=== PATIENT | male | born 1950 | race Caucasian/White ===

== ENCOUNTER 2016-11-20 10:38 | Outpatient (CLI) | payer OTHER ==
--- NOTE | 2016-11-20 16:51 | ULT ---
BILATERAL CAROTID DUPLEX ULTRASOUND INCLUDING COLOR AND SPECTRAL DOPPLER IMAGING: History: 66-year-old male with history of CVA. History of right ICA occlusion. FINDINGS: Extensive plaque in the right ICA with total occlusion. Marked increased velocity in the right ECA o f 304 cm/sec. On the left side there is fairly extensive plaque at the origin of the left ICA. PSV left ICA 134 cm/sec. EDV 57 cm/sec. ICA/CCA ratio of 1.3. IMPRESSION: Complete occlusion of the right ICA, stable. Moderate stenosis of the proximal left ICA with extensi ve plaque, stable from prior exam 12-10-13. POS: OFF
== END 2016-11-20 10:39 | disposition home or self-care (01) ==
LOC: ULT 10:38
PROVIDERS: ATTEND Family Medicine
DX: I63.9 Cerebral infarction, unspecified (principal); I65.23 Occlusion and stenosis of bilateral carotid arteries
CPT/HCPCS: 93880

== ENCOUNTER 2017-05-24 14:24 | Outpatient (CLI) | payer MEDICARE, OTHER | END 2017-05-24 14:25 | disposition home or self-care (01) | LOC: BICULT 14:24 | PROVIDERS: ATTEND Family Medicine | DX: I65.23 Occlusion and stenosis of bilateral carotid arteries (principal) | CPT/HCPCS: 93880 ==

== ENCOUNTER 2017-11-30 09:17 | Outpatient (CLI) | payer MEDICARE, OTHER | END 2017-11-30 09:18 | disposition home or self-care (01) | LOC: CTENTCT 09:17 | PROVIDERS: ATTEND Specialist | DX: J34.2 Deviated nasal septum (principal) | CPT/HCPCS: 70486 ==

== ENCOUNTER 2019-03-04 11:24 | Outpatient (CLI) | payer MEDICARE, OTHER | END 2019-03-04 11:25 | disposition home or self-care (01) | LOC: CTENTCT 11:24 | PROVIDERS: ATTEND Otolaryngology Plastic Surgery within the Head & Neck | DX: L03.213 Periorbital cellulitis (principal) | CPT/HCPCS: 70486 ==

== ENCOUNTER 2019-07-15 07:52 | Outpatient (CLI) | payer MEDICARE, OTHER ==
[2019-07-15 14:22] LABS: Hemoglobin 16.2 g/dL (14.0-18.0)
[2019-07-15 14:45] LABS: Anion Gap 12 mmol/L (10-20); BUN (Urea Nitrogen) 16 mg/dL (8.4-25.7); Calc. Creatinine Clearance 0 mL/min (70-130); Calcium 10.2 mg/dL (7.8-10.44); Carbon Dioxide 30 mmol/L (23-31); Chloride 106 mmol/L (98-107); Estimated GFR-MDRD 89; Glucose 107 mg/dL (80-115); Potassium 4.5 mmol/L (3.5-5.1); Sodium 143 mmol/L (136-145)
== END 2019-07-15 07:53 | disposition home or self-care (01) ==
LOC: LABBT 07:52
PROVIDERS: ATTEND Otolaryngology Plastic Surgery within the Head & Neck
DX: Z01.812 Encounter for preprocedural laboratory examination (principal); Z11.59 Encounter for screening for other viral diseases; J32.8 Other chronic sinusitis; J34.2 Deviated nasal septum; J34.3 Hypertrophy of nasal turbinates
CPT/HCPCS: 80048; 85014; 85018

== ENCOUNTER 2019-07-16 06:52 | Day surgery (SDC) | payer MEDICARE, OTHER ==
[2019-07-16] MEDS ORDERED: AFRIN NASAL MIST 15 ML BOT ONE ×2 (07:29→08:38)
[2019-07-16] MEDS ORDERED: Acetaminophen 500 MG TAB ONE (07:35)
[2019-07-16] MEDS ORDERED: Lidocaine 1% w/Epinephrine 1:100K 20 ML VIAL ONE (08:38)
[2019-07-16] MEDS ORDERED: Bacitracin Zinc Ointment 30 gm TUBE ONE (08:38)
[2019-07-16] MEDS ORDERED: Fentanyl 100 MCG/2 ML VIAL ONE ×3 (08:39→10:10)
[2019-07-16] MEDS ORDERED: Labetalol HCl 100 MG/20 ML VIAL ONE (10:03)
[2019-07-16] MEDS ORDERED: Lidocaine 1% PF 5 ML VIAL ONE (11:29)
[2019-07-16] MEDS ORDERED: Ondansetron PF 4 MG/2 ML Vial ONE (11:29)
[2019-07-16] MEDS ORDERED: Dexamethasone 20 MG/5 ML VIAL ONE (11:29)
[2019-07-16] MEDS ORDERED: Rocuronium Bromide 10 MG/ML (10ML VIAL) ONE (11:29)
[2019-07-16] MEDS ORDERED: PROPOFOL 200 MG/20 ML VIAL ONE (11:29)
[2019-07-16] MEDS ORDERED: EPHEDRINE 25 MG/5 ML SYRINGE ONE (11:29)
[2019-07-16] MEDS ORDERED: Glycopyrrolate 0.2 MG/ML 5 ML SYRINGE ONE (11:29)
--- NOTE | 2019-07-17 17:11 | OP ---
DATE OF PROCEDURE: 07/16/2019 PREOPERATIVE DIAGNOSES: 1. Chronic rhinosinusitis. 2. Allergic fungal sinusitis. 3. Bilateral nasal polyposis. 4. Nasal septal deviation. 5. Bilateral inferior turbinate submucosal resection. PROCEDURES PERFORMED: 1. Bilateral endoscopic sinus surgery, total ethmoidectomies with sphenoidotomies including removal of tissue. 2. Bilateral endoscopic sinus surgery, maxillary antrostomies with removal of tissue. 3. Bilateral endoscopic sinus surgery, frontal sinus exploration. 4. Nasal septoplasty. 5. Bilateral inferior turbinate submucosal resection. ESTIMATED BLOOD LOSS: 20 mL. COMPLICATIONS: None. ANESTHESIA: GETA. INDICATIONS FOR PROCEDURE: This is a 69-year-old gentleman, who was unable to tolerate completion of an in-office balloon sinuplasty 2 days prior. He has what we consider severe pansinusitis that has been unresponsive to medical management. He was encouraged to attempt an in-office procedure being that he has 100% occlusion of his carotid artery and is at extremely high risk for stroke during procedure. However, after failure of this, the danger the severe sinusitis presents to his eyes and brain greatly outweigh the risks. DESCRIPTION OF PROCEDURE: NASAL SEPTOPLASTY AND BILATERAL INFERIOR TURBINATE SUBMUCOSAL RESECTION: Patient was taken to the operating room and placed supine on the table. General endotracheal anesthesia was obtained by the anesthesia staff. Then 1% lidocaine with 1:100,000 epinephrine was injected into the nasal septum as well as the inferior turbinates. The patient was prepped and draped in standard surgical fashion. The [place] pledgets were then removed. A [place] incision was made on the left nasal septum. Submucoperichondrial dissection was performed bilaterally of the deviated portions of the septum, which included the maxillary crest and the crest deviation, as well as the mid portion of the septum. Cartilage and bony deviation was removed, leaving a generous caudal and dorsal strut. Any straight pieces of cartilage were then placed within the cartilage press, pressed, straightened, and then placed between the mucoperichondrial flaps, which were then closed using a 4-0 gut stitch. The inferior turbinates were then punctured with the submucosal Coblation machine, and 3 separate coblations were delivered to the anterior inferior portion of the inferior turbinates. Following this, the nasal cavity was irrigated. All debris was removed. An orogastric tube was placed. Gastric contents and Bell splints were then placed in the nasal cavity and sutured with a 3-0 silk stitch. BILATERAL ENDOSCOPIC SINUS SURGERY, TOTAL ETHMOIDECTOMY AND MAXILLARY ANTROSTOMY: Following this, 1% lidocaine with 1:100,000 epinephrine were injected into the middle turbinates and lateral nasal wall bilaterally. Following this, the 0-degree endoscope was used to visualize the middle turbinate and the middle turbinate was medially fractured using a [place] elevator. Following this, the uncinate process was identified and was examined. The uncinate process was noted to be inflamed and laterally displaced bilaterally. Following this, a ball-ended probe was used to anteriorly fracture the uncinate process bilaterally. Following this, the 0-degree microdebrider and the up-biting [place] forceps were used to remove the uncinate process bilaterally. Following this, the natural maxillary sinus ostia was identified with the 0-degree endoscope and the ball-ended probe. The natural maxillary ostia was then widened using a 40-degree microdebrider and the straight [place] forceps bilaterally. Following this, the ethmoidal bulla was identified bilaterally. A 0-degree microdebrider was used to puncture the ethmoidal bulla on its medial and inferior aspect bilaterally. Following this, the 0-degree microdebrider and the up-biting [place] forceps were used to remove the ethmoidal bulla. Following this, the grand lamella was identified posterior to this area and was punctured using the 0-degree microdebrider bilaterally. Following this, the ethmoidal cells were opened from the posterior to the anterior using the 0-degree microdebrider, the 40-degree microdebrider and the up-biting [place] forceps bilaterally. Following this, the 45-degree endoscope and the 40-degree microdebrider blade were used to further remove the anterior ethmoidal cells to the level of the frontal sinus recess bilaterally. Please note that the nasal polyps and fungal debris were removed from the ethmoidal sinuses and the maxillary sinuses bilaterally using the curved suction and 40-degree microdebrider blade. Following this, the sphenoid sinus was approached through the previous ethmoidectomies using the 0-degree microdebrider. Following this, a sphenoidotomy was created on the anterior wall of the sphenoid sinus bilaterally with Page tip suction and the sphenoidotomy was widened by removing tissue with a 0-degree microdebrider. Tissue removed included nasal polyps and fungal debris along with purulence. Following this, a 45-degree endoscope and the 40-degree microdebrider blade was used to widen the frontal sinus ostia and anterior ethmoidal cells bilaterally. Following this, the nasal cavity was irrigated. NasoPore packing was placed in the middle meatus. Bell splints were placed and secured. The patient tolerated the procedure well. Job ID: [id number]
== END 2019-07-16 12:04 | disposition home or self-care (01) ==
LOC: SDC 06:52
PROVIDERS: ATTEND Otolaryngology Plastic Surgery within the Head & Neck
PROC: 099R8ZZ Drainage of Left Maxillary Sinus, Via Natural or Artificial Opening Endoscopic (ICD-10-PCS; principal; 2019-07-16)
PROC: 099Q8ZZ Drainage of Right Maxillary Sinus, Via Natural or Artificial Opening Endoscopic (ICD-10-PCS; 2019-07-16)
PROC: 09BT8ZZ Excision of Left Frontal Sinus, Via Natural or Artificial Opening Endoscopic (ICD-10-PCS; 2019-07-16)
PROC: 09BS8ZZ Excision of Right Frontal Sinus, Via Natural or Artificial Opening Endoscopic (ICD-10-PCS; 2019-07-16)
PROC: 09BL8ZZ Excision of Nasal Turbinate, Via Natural or Artificial Opening Endoscopic (ICD-10-PCS; 2019-07-16)
PROC: 09BM8ZZ Excision of Nasal Septum, Via Natural or Artificial Opening Endoscopic (ICD-10-PCS; 2019-07-16)
PROC: 09BV8ZZ Excision of Left Ethmoid Sinus, Via Natural or Artificial Opening Endoscopic (ICD-10-PCS; 2019-07-16)
PROC: 09BU8ZZ Excision of Right Ethmoid Sinus, Via Natural or Artificial Opening Endoscopic (ICD-10-PCS; 2019-07-16)
PROC: 099X8ZZ Drainage of Left Sphenoid Sinus, Via Natural or Artificial Opening Endoscopic (ICD-10-PCS; 2019-07-16)
PROC: 099W8ZZ Drainage of Right Sphenoid Sinus, Via Natural or Artificial Opening Endoscopic (ICD-10-PCS; 2019-07-16)
DX: J32.9 Chronic sinusitis, unspecified (principal); J34.2 Deviated nasal septum; J34.3 Hypertrophy of nasal turbinates; J33.9 Nasal polyp, unspecified; J34.89 Other specified disorders of nose and nasal sinuses; I10 Essential (primary) hypertension; E11.9 Type 2 diabetes mellitus without complications; F41.9 Anxiety disorder, unspecified; E78.5 Hyperlipidemia, unspecified; Z79.82 Long term (current) use of aspirin; Z79.84 Long term (current) use of oral hypoglycemic drugs; Z79.899 Other long term (current) drug therapy; Z87.891 Personal history of nicotine dependence
CPT/HCPCS: J1100; J2001; J2405; J2704; J3010

== ENCOUNTER 2019-11-25 14:22 | Outpatient (CLI) | payer MEDICARE, OTHER ==
--- NOTE | 2019-11-25 15:36 | ULT ---
BILATERAL CAROTID DUPLEX ULTRASOUND: HISTORY: Left carotid bruit COMPARISON: 11/20/2016, 05/24/2017 TECHNIQUE: Grayscale, color-flow and spectral Doppler ultrasound imaging of the extracranial carotid artery syst ems and vertebral arteries was performed bilaterally. FINDINGS: Right carotid: Significant atherosclerotic disease in the carotid bifurcation. There is occlusion of the internal carotid artery. Left carotid: Calcified plaque in the left carotid bifurcation. The peak systolic velocity in the right ICA measures 43.9 cm/s. The peak systolic velocity in the ri ght CCA measures 109 cm/s. The peak systolic velocity in the left ICA measures 182 cm/s. The peak systolic velocity in the le ft CCA measures 89.5 cm/s. The right IC/CC ration is0.4. The left IC/CC ratio is 2.1. Vertebral flow: antegrade, bilaterally. . IMPRESSION: 1. Redemonstration of occlusion of the right internal carotid artery 2. Moderate stenosis of the left carotid artery. Consider CT angiogram and cardiovascular surgical co nsultation. CODE T
== END 2019-11-25 14:23 | disposition home or self-care (01) ==
LOC: BICULT 14:22
PROVIDERS: ATTEND Family Medicine
DX: I63.9 Cerebral infarction, unspecified (principal); R09.89 Other specified symptoms and signs involving the circulatory and respiratory systems; I65.23 Occlusion and stenosis of bilateral carotid arteries
CPT/HCPCS: 93880

== ENCOUNTER 2022-11-30 12:39 | Outpatient (CLI) | payer MEDICARE, OTHER | END 2022-11-30 12:40 | disposition home or self-care (01) | LOC: ULT 12:39 | PROVIDERS: ATTEND Family Medicine | DX: N50.89 Other specified disorders of the male genital organs (principal); R09.89 Other specified symptoms and signs involving the circulatory and respiratory systems; N44.2 Benign cyst of testis; N43.3 Hydrocele, unspecified; I65.22 Occlusion and stenosis of left carotid artery | CPT/HCPCS: 76870; 93880; 93976 ==

== ENCOUNTER 2023-06-28 09:54 | Inpatient (IN) | payer MEDICARE, OTHER ==
[2023-06-28 11:11] LABS: #Basophils Less than 0.03 10x3/uL (0.0-0.2); %Basophils 0.2 % (0.0-1.0); %Lymphocytes 3.1 % (21.0-51.0); %Monocytes 8.5 % (0.0-10.0); %Neutrophils 86.3 % (42.0-75.0); Hematocrit 30.5 % (42.0-52.0); Hemoglobin 9.8 g/dL (14.0-18.0); Mean Corpuscular HGB CONC 32.1 g/dL (32.0-36.0); Mean Corpuscular Hemoglobin 29.3 pg (27.0-31.0); Mean Platelet Volume 9.9 fL (7.4-10.4); Platelet Count 213 10x3/uL (130-400); RBC Distribution Width 17.9 % (11.5-14.5); Red Blood Cell (RBC) Count 3.35 mill/uL (4.70-6.10)
[2023-06-28 11:43] LABS: ALT (SGPT) 12 U/L (8-55); AST (SGOT) 24 U/L (5-34); Albumin 2.1 g/dL (3.4-4.8); Alkaline Phosphatase 118 U/L (40-110); Anion Gap 13 mmol/L (10-20); BUN (Urea Nitrogen) 50 mg/dL (8.4-25.7); Bilirubin, Total 0.8 mg/dL (0.2-1.2); Calc. Creatinine Clearance 0 mL/min (70-130); Calcium 16.5 mg/dL (7.8-10.44); Carbon Dioxide 30 mmol/L (23-31); Chloride 97 mmol/L (98-107); Estimated GFR 33; Globulin 3.7 g/dL (2.4-3.5); Glucose 152 mg/dL (83-110); Potassium 2.9 mmol/L (3.5-5.1); Protein, Total 5.8 g/dL (5.8-8.1); Sodium 137 mmol/L (136-145)
[2023-06-28 12:49] LABS: Magnesium 2.1 mg/dL (1.6-2.6)
[2023-06-28] MEDS ORDERED: Potassium Bicarbonate/Cit Ac 20 MEQ TAB ONE (13:32)
[2023-06-28] MEDS ORDERED: Aspirin Chewable 81 MG TAB ONE (13:32)
[2023-06-28 15:12] LABS: Bilirubin Negative (Negative); Blood, Urine Negative (Negative); CAUTI Indications for Culture Alt mental st,lethar; Clarity Clear (Clear); Glucose, Urine (Dipstick) Normal (Negative); Ketone, Urine Negative (Negative); Leukocyte Negative Leu/uL (Negative); Nitrite Negative (Negative); Protein, Urine (Dipstick) 20 mg/dL (Neg-Trace); RBC/HPF 0-3 HPF (0-3); Specific Gravity, Urine 1.016 (1.002-1.036); Squamous Epithelial 0-3 HPF (0-3); Urobilinogen Normal mg/dL (Less than 2); WBC/HPF 0-3 HPF (0-3); pH, Urine 5.5 (5.0-9.0)
[2023-06-28 15:28] LABS: Bacteria/HPF Rare-Few HPF (None Seen); Sperm/HPF Rare HPF (None Seen)
[2023-06-28 15:29] LABS: Urine Culture Reflex No No
[2023-06-28] MEDS ORDERED: Acetaminophen 325 MG TAB PO PRN (15:35)
[2023-06-28] MEDS ORDERED: Senokot S 8.6-50 MG TAB PO PRN (15:35)
[2023-06-28] MEDS ORDERED: Dextrose 50% Abboject 50 ML SYRINGE SLOW IVP PRN (16:02)
[2023-06-28] MEDS ORDERED: HumaLOG 300 UNITS/3 ML VIAL SC PRN (16:02)
[2023-06-28] MEDS ORDERED: Dextrose 5% in Water 1,000 ML IV PRN (16:02)
[2023-06-28] MEDS ORDERED: Glucagon 1 MG/ML KIT IM PRN (16:02)
[2023-06-28 18:50] VITALS: BMI 25.6
[2023-06-28] MEDS: Sodium Chloride 0.9% 1,000 ML IV SCH (19:01)
[2023-06-28] MEDS: Calcitonin,Salmon,Synthetic 400 UNITS/2 ML SC SCH (19:02)
[2023-06-28] MEDS: Heparin 5,000 UNITS/ML VIAL SC SCH (20:49)
[2023-06-28] MEDS: Famotidine 20 MG TAB PO SCH (20:50)
[2023-06-29 04:32] LABS: #Basophils Less than 0.03 10x3/uL (0.0-0.2); %Basophils 0.1 % (0.0-1.0); %Eosinophils 0.5 % (0.0-10.0); %Monocytes 7.5 % (0.0-10.0); %Neutrophils 88.9 % (42.0-75.0); Hematocrit 27.7 % (42.0-52.0); Hemoglobin 9.1 g/dL (14.0-18.0); Mean Corpuscular HGB CONC 32.9 g/dL (32.0-36.0); Mean Corpuscular Hemoglobin 29.5 pg (27.0-31.0); Mean Corpuscular Volume 89.9 fL (78.0-98.0); Mean Platelet Volume 9.9 fL (7.4-10.4); Platelet Count 215 10x3/uL (130-400); RBC Distribution Width 18.1 % (11.5-14.5); Red Blood Cell (RBC) Count 3.08 mill/uL (4.70-6.10)
[2023-06-29 05:08] LABS: ALT (SGPT) 12 U/L (8-55); AST (SGOT) 27 U/L (5-34); Albumin 2.1 g/dL (3.4-4.8); Alkaline Phosphatase 109 U/L (40-110); Anion Gap 14 mmol/L (10-20); BUN (Urea Nitrogen) 43 mg/dL (8.4-25.7); Bilirubin, Total 0.9 mg/dL (0.2-1.2); Calc. Creatinine Clearance 43 mL/min (70-130); Calcium 14.4 mg/dL (7.8-10.44); Carbon Dioxide 29 mmol/L (23-31); Chloride 99 mmol/L (98-107); Estimated GFR 38; Globulin 3.4 g/dL (2.4-3.5); Glucose 110 mg/dL (83-110); Potassium 3.1 mmol/L (3.5-5.1); Protein, Total 5.5 g/dL (5.8-8.1); Sodium 139 mmol/L (136-145)
[2023-06-29] MEDS: Furosemide 20 MG (2 mL) VIAL SLOW IVP SCH (05:41)
[2023-06-29 07:50] VITALS: BMI 25.6
[2023-06-29] MEDS: Multivit, Therapeutic 1 TAB PO SCH (08:59)
[2023-06-29] MEDS: Allopurinol 100 MG TAB PO SCH (08:59)
[2023-06-29] MEDS: Aspirin 325 MG TAB PO SCH (08:59)
[2023-06-29] MEDS: Calcitonin,Salmon,Synthetic 400 UNITS/2 ML SC SCH (09:00)
[2023-06-29] MEDS: Allopurinol 300 MG TAB PO SCH (10:14)
[2023-06-29] MEDS: Zoledronic Acid 4 MG in Sodium Chloride 0.9% 100 ML IVPB SCH (10:14)
[2023-06-29 11:42] VITALS: TEMP 98.1
[2023-06-29] MEDS: Potassium Chloride 20 MEQ TAB PO SCH (12:49)
[2023-06-29] MEDS ORDERED: Melatonin 3 MG TAB PO PRN (13:24)
[2023-06-29] MEDS ORDERED: traZODone HCl 50 MG TAB PO PRN (15:02)
[2023-06-29] MEDS: Ziprasidone 20 MG VIAL IM SCH (16:12)
[2023-06-29 16:24] VITALS: BP 141/64
[2023-06-29 17:06] LABS: ALT (SGPT) 13 U/L (8-55); AST (SGOT) 29 U/L (5-34); Albumin 2.2 g/dL (3.4-4.8); Alkaline Phosphatase 141 U/L (40-110); Anion Gap 13 mmol/L (10-20); BUN (Urea Nitrogen) 45 mg/dL (8.4-25.7); Bilirubin, Total 1.1 mg/dL (0.2-1.2); Calc. Creatinine Clearance 42 mL/min (70-130); Calcium 14.8 mg/dL (7.8-10.44); Carbon Dioxide 28 mmol/L (23-31); Chloride 102 mmol/L (98-107); Estimated GFR 37; Globulin 3.6 g/dL (2.4-3.5); Glucose 112 mg/dL (83-110); Phosphorus 3.5 mg/dL (2.3-4.7); Potassium 3.6 mmol/L (3.5-5.1); Protein, Total 5.8 g/dL (5.8-8.1); Sodium 139 mmol/L (136-145); Uric Acid 8.9 mg/dL (3.5-7.2)
[2023-06-29] MEDS: Sterile Water 10 ML VIAL FS SCH (19:11)
[2023-06-29] MEDS: Famotidine 20 MG TAB PO SCH (20:20)
[2023-06-29] MEDS: QUEtiapine 25 MG TAB PO SCH (20:24)
== END 2023-06-30 06:00 | disposition home or self-care (01) | DRG 840 ==
LOC: ERS 09:54 → ERHOLD 15:33 → 2NO 18:31
PROVIDERS: ADMIT Student in an Organized Health Care Education/Training Program; ATTEND Student in an Organized Health Care Education/Training Program
DX: C85.10 Unspecified B-cell lymphoma, unspecified site (principal); E88.3 Tumor lysis syndrome; I21.4 Non-ST elevation (NSTEMI) myocardial infarction; N17.9 Acute kidney failure, unspecified; E83.52 Hypercalcemia; E87.6 Hypokalemia; Z79.82 Long term (current) use of aspirin; Z79.899 Other long term (current) drug therapy; Z79.84 Long term (current) use of oral hypoglycemic drugs; I25.10 Atherosclerotic heart disease of native coronary artery without angina pectoris; E11.9 Type 2 diabetes mellitus without complications; E78.5 Hyperlipidemia, unspecified; I10 Essential (primary) hypertension; Z98.890 Other specified postprocedural states; F41.9 Anxiety disorder, unspecified; Z87.891 Personal history of nicotine dependence; E87.70 Fluid overload, unspecified
CPT/HCPCS: 36415; 36416; 70450; 71045; 71275; 72125; 80053; 81001; 83615; 83735; 83880; 84100; 84443; 84484; 84550; 85025; 93005; 93306; 94760; J0630; J1644; J1940; J3486; J3489; J3490; J7050